=== PATIENT | female | born 1995 | race Caucasian/White ===

== ENCOUNTER 2016-07-26 18:06 | Emergency (ER) | payer BC ==
[2016-07-26 18:59] VITALS: BP 113/70
--- NOTE | 2016-07-26 19:08 | UC ---
Shoulder Pain HPI - HPI Summary HPI Summary: pt c/o sudden onset of right shoulder pain. 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 denies and trauma or injury. - History of Current Complaint Chief Complaint: UCUpperExtremity Stated Complaint: RIGHT SHOULDER INJURY Time Seen by Provider: 07/26/16 18:55 Hx Obtained From: Patient Hx Last Menstrual Period: 06/25/16 ?: No Onset/Duration: Sudden Onset, Lasting Days Timing: Constant Severity Initially: Mild Severity Currently: Mild Location Of Pain: Is Discrete @ - right shoulder Character: Dull, Aching, Stiffness Aggravating Factor(s): Movement Alleviating Factor(s): Rest Associated Signs And Symptoms: Positive: Negative Related History: Other: - pain with ROM - Risk Factors Non-Orthopedic Risk Factor: Negative - Allergies/Home Medications Allergies/Adverse Reactions: Allergies Allergy/AdvReac Type Severity Reaction Status Date / Time No Known Allergies Allergy Verified 07/26/16 18:54 Home Medications: Home Medications Naproxen TAB* [Naprosyn TAB*] 250 mg PO ONCE 07/26/16 [History Confirmed ] PMH/Surg Hx/FS Hx/Imm Hx Previously Healthy: Yes - Surgical History Surgical History: None - Family History Known Family History: Positive: None, Hypertension, Other - hypothyroid - Social History Lives: With Family Alcohol Use: None Substance Use Type: None Smoking Status (MU): Never Smoked Tobacco - Immunization History Most Recent Influenza Vaccination: none Review of Systems Constitutional: Negative Skin: Negative Eyes: Negative ENT: Negative Respiratory: Negative Cardiovascular: Negative Gastrointestinal: Negative Genitourinary: Negative Motor: Decreased ROM - right shoulder Neurovascular: Negative Musculoskeletal: Arthralgia, Decreased ROM - right shoulder, Myalgia Neurological: Negative Psychological: Negative All Other Systems Reviewed And Are Negative: Yes Physical Exam Triage Information Reviewed: Yes Appearance: Well-Appearing Vital Signs: Initial Vital Signs Temp 99.1 F 07/26/16 18:52 Pulse 83 07/26/16 18:52 Resp 16 07/26/16 18:52 BP 113/70 07/26/16 18:52 Pulse Ox 100 07/26/16 18:52 Vital Signs Reviewed: Yes Neck exam: Normal Respiratory Exam: Normal Cardiovascular Exam: Normal Musculoskeletal Exam: Other Musculoskeletal: Positive: ROM Limited @ - right shoulder Neurological Exam: Normal Psychological Exam: Normal Skin Exam: Normal Shoulder Course/Dx - Differential Dx/Diagnosis Differential Diagnosis/HQI/PQRI: Bursitis, Rotator Cuff Injury, Tendonitis Provider Diagnoses: right shoulder bursitis Discharge - Discharge Plan Condition: Stable Disposition: HOME Prescriptions: Ibuprofen TAB* [Motrin TAB* 600 MG] 600 mg PO Q8H PRN #21 tab PRN Reason: Pain predniSONE TAB* [Deltasone TAB*] 30 mg PO DAILY #9 tab Patient Education Materials: Shoulder Bursitis (ED) Forms: *Work Release Referrals: Claudio Lopez DO [Primary Care Provider] -
== END 2016-07-26 19:17 | disposition home or self-care (01) ==
LOC: UCCORT 18:06
DX: M75.51 Bursitis of right shoulder (principal)
CPT/HCPCS: 99212; G0463

== ENCOUNTER 2018-09-19 09:08 | Emergency (ER) | payer BC, OTHER ==
[2018-09-19 10:06] VITALS: BP 114/79
--- NOTE | 2018-09-19 10:17 | UC ---
Throat Pain/Nasal Tim HPI - HPI Summary HPI Summary: Patient is a high school history teacher, has had severe sore throat for 3 days, no developed a fever last night, sinus congestion and SOB on exertion - History of Current Complaint Chief Complaint: UCRespiratory Stated Complaint: COUGH,STUFFY NOSE,ST,FEVER,NAUSEA Time Seen by Provider: 09/19/18 10:09 Hx Obtained From: Patient Hx Last Menstrual Period: 09/05/18 ?: No Onset/Duration: Sudden Onset, Lasting Days Severity: Moderate Pain Intensity: 0 Associated Signs & Symptoms: Positive: Dysphagia, Hoarseness, Sinus Discomfort, Fever - Allergies/Home Medications Allergies/Adverse Reactions: Allergies Allergy/AdvReac Type Severity Reaction Status Date / Time No Known Allergies Allergy Verified 09/19/18 10:02 Home Medications: Home Medications Dextromethorphan Hb/Doxylamine [Daytime-Nighttime Cough Rlf Lq] 710 ml PO BEDTIME PRN 09/19/18 [History Confirmed 09/19/18] PMH/Surg Hx/FS Hx/Imm Hx Previously Healthy: Yes - Surgical History Surgical History: None - Family History Known Family History: Positive: None, Hypertension, Other - hypothyroid - Social History Alcohol Use: Rare Substance Use Type: None Smoking Status (MU): Never Smoked Tobacco - Immunization History Most Recent Influenza Vaccination: none Review of Systems All Other Systems Reviewed And Are Negative: Yes Constitutional: Positive: Fever, Fatigue Skin: Positive: Negative Eyes: Positive: Negative ENT: Positive: Sore Throat, Nasal Discharge, Sinus Congestion Respiratory: Positive: Shortness Of Breath, Cough Cardiovascular: Positive: Negative Gastrointestinal: Positive: Negative Genitourinary: Positive: Negative Motor: Positive: Negative Neurovascular: Positive: Negative Musculoskeletal: Positive: Negative Neurological: Positive: Negative Psychological: Positive: Negative Is Patient Immunocompromised?: No Physical Exam Triage Information Reviewed: Yes Appearance: Well-Nourished, Ill-Appearing, Pain Distress Vital Signs: Initial Vital Signs Temp 98.4 F 09/19/18 10:03 Pulse 95 09/19/18 10:03 Resp 16 09/19/18 10:03 BP 114/79 09/19/18 10:03 Pulse Ox 100 09/19/18 10:03 Vital Signs Reviewed: Yes Eye Exam: Normal ENT: Positive: Pharyngeal erythema, Nasal drainage, TMs normal, Tonsillar swelling Dental Exam: Normal Neck exam: Normal Respiratory Exam: Normal Respiratory: Positive: Chest non-tender, Lungs clear, Normal breath sounds Cardiovascular Exam: Normal Abdominal Exam: Normal Abdomen Description: Positive: Nontender, No Organomegaly, Soft Bowel Sounds: Positive: Present Musculoskeletal Exam: Normal Neurological Exam: Normal Psychological Exam: Normal Skin Exam: Normal Throat Pain/Nasal Course/Dx - Course Course Of Treatment: hx obtained, exam performed ,meds reviewed, rapid flu and strep obtained, both were negative. treated for pharyngitis - Differential Dx/Diagnosis Differential Diagnosis/HQI/PQRI: Influenza, Laryngitis, Otitis Media, Pharyngitis, Sinusitis, URI Provider Diagnosis: Pharyngitis Discharge - Sign-Out/Discharge Documenting (check all that apply): Patient Departure All imaging exams completed and their final reports reviewed: No Studies - Discharge Plan Condition: Stable Disposition: HOME Prescriptions: Benzonatate CAP* [Tessalon 100 MG CAP*] 100 mg PO TID PRN #21 cap PRN Reason: Cough guaiFENesin/CODIEN 100MG-10MG* [Robitussin AC 100Mg-10Mg*] 5 ml PO BEDTIME PRN # 50 ml MDD 5 ml PRN Reason: Cough Patient Education Materials: Pharyngitis (ED) Referrals: Mandie Galvez PA [Primary Care Provider] - Additional Instructions: 1. take the medication as prescribed. 2. Increase fluid intake and get plenty of rest. 3. Ibuprofen and tylenol for pain and fever. 4. Follow up as needed. - Billing Disposition and Condition Condition: STABLE Disposition: Home - Attestation Statements Provider Attestation: Per institutional requirements, I have reviewed the chart, however, I was not consulted specifically or made aware of this patient by the midlevel provider. I did not personally evaluate, interact with , or disposition this patient.
[2018-09-19 10:30] LABS: Influenza A Molecular NEGATIVE (Negative); Influenza B Molecular NEGATIVE (Negative)
== END 2018-09-19 10:40 | disposition home or self-care (01) ==
LOC: UCCORT 09:08
DX: J02.9 Acute pharyngitis, unspecified (principal)
CPT/HCPCS: 87651; 99212; G0463

== ENCOUNTER 2019-01-13 12:42 | Emergency (ER) | payer OTHER ==
[2019-01-13 12:56] VITALS: BP 123/80
--- NOTE | 2019-01-13 13:01 | UC ---
General HPI - HPI Summary HPI Summary: AROUND 12:30 AM, PT SAT UP IN BED TO GO USE THE BATHROOM. SHE IMMEDIATELY FELT "DIZZY" AND HER "LEGS GAVE OUT". SHE REPORTS FALLING TO THE FLOOR WHERE SHE FOUND HERSELF TO BE FACE DOWN AND IS CERTAIN SHE FAINTED BUT NOT SURE HOW LONG. UPON WAKING, SHE STATES "I FELT AWFUL" AND STRUGGLED BUT GOT BACK IN BED. AFTER ABOUT 20 MINUTES, SHE GOT BACK UP AND WENT TO THE BATHROOM DESPITE ONGOING WEAKNESS. SHE COMES IN NOW FOR ONGOING SENSE OF WEAKNESS, SHAKY AND FEELS LIKE HER HEART IS BEATING HARD. ALSO, SHE FEELS LIKE IT IS "HARD TO BREATHE". SHE DENIES HX DVT/PE. SHE HAD NO ASSOCIATED INCONTINENCE, CONFUSION, MOUTH INJURY OR INJURIES FROM FALL. SHE DENIES LEG/CALF PAIN/SWELLING, TRAVEL HX, BC USE. SHE DENIES CHANCE OF AND IS REFUSING TESTING. SHE DENIES CURRENT OR RECENT ILLNESS. NO PRIOR HX OF THE SAME. PT CALLED HER PCP BUT THEY WERE UNABLE TO GET HER IN SO SHE DROVE HERSELF HERE. - History of Current Complaint Stated Complaint: DIZZY, LOC Time Seen by Provider: 01/13/19 12:50 Hx Obtained From: Patient Hx Last Menstrual Period: 09/05/18 Onset/Duration: Sudden Onset - Allergy/Home Medications Allergies/Adverse Reactions: Allergies Allergy/AdvReac Type Severity Reaction Status Date / Time No Known Allergies Allergy Verified 09/19/18 10:02 PMH/Surg Hx/FS Hx/Imm Hx Previously Healthy: Yes - Surgical History Surgical History: None - Family History Known Family History: Positive: None, Hypertension, Other - hypothyroid - Social History Lives: With Family Alcohol Use: Rare Substance Use Type: None Smoking Status (MU): Never Smoked Tobacco - Immunization History Most Recent Influenza Vaccination: none Review of Systems All Other Systems Reviewed And Are Negative: Yes Respiratory: Positive: Shortness Of Breath. Negative: Cough Cardiovascular: Positive: Palpitations. Negative: Chest Pain Musculoskeletal: Negative: Calf Tenderness, Edema Neurological: Positive: Weakness. Negative: Headache Physical Exam Triage Information Reviewed: Yes Appearance: Well-Appearing Vital Signs Reviewed: Yes Eyes: Positive: Conjunctiva Clear, Other: - perrl, eomi ENT: Positive: Pharynx normal, TMs normal. Negative: Nasal congestion, Nasal drainage Neck: Positive: Supple, Nontender, No Lymphadenopathy Respiratory: Positive: Lungs clear, Normal breath sounds, No respiratory distress Cardiovascular: Positive: RRR, No Murmur, Pulses Normal Abdomen Description: Positive: Nontender, No Organomegaly, Soft Bowel Sounds: Positive: Present Musculoskeletal: Positive: ROM Intact, No Edema, Other: - atraumatic. Neurological: Positive: Other: - a&oX3. cn 2-12 grossly intact. memory intact. steady gait. Psychological: Positive: Age Appropriate Behavior Skin Exam: Normal Skin: Negative: Rashes Diagnostics - Laboratory Lab Results: FS BS=87 - EKG Cardiac Rate: NL Cardiac Rhythm: Sinus: Normal Ectopy: None ST Segment: Normal Course/Dx - Course Course Of Treatment: [facility] ER called, report given to Rina Lamb PHYSICAL BIOCHEMIST including hx, PE, EKG/BS results. Advised will need r/o PE. pt refusing ems. i advised of risk for mva, worsening, disability and ; however, she still declined ems. she is a&ox3 and is able to make this decison thus I must respect her wish. her grandmother is coming to drive pt to the ER. - Differential Dx - Multi-Symptom Differential Diagnoses: Other - ekg = unremarkable. fs bs=wnl. pregenacy test refused, pt states not way . no s/s's to support seizure. no tachycardic or hypoxic but does feel sob thus will need to r/o PE. orthostatic hypotension is possible. pt agrees to ER transfer. - Diagnoses Provider Diagnosis: Syncope, Palpitations, Dyspnea Discharge - Sign-Out/Discharge Documenting (check all that apply): Patient Departure All imaging exams completed and their final reports reviewed: No Studies - Discharge Plan Condition: Stable Disposition: TRANS HIGHER LVL OF CARE FAC Referrals: Mandie Galvez PA [Primary Care Provider] - Additional Instructions: LEAVE HERE AND GO DIRECTLY TO THE [facility]. - Billing Disposition and Condition Condition: STABLE Disposition: Trans Higher Lvl of Care Fac
== END 2019-01-13 13:30 | disposition short-term general hospital (02) ==
LOC: UCCORT 12:42
DX: R55 Syncope and collapse (principal); R00.2 Palpitations; R06.00 Dyspnea, unspecified
CPT/HCPCS: 93005; 99212; G0463